=== PATIENT | female | born 1970 | race Asian ===

== ENCOUNTER 2024-09-13 08:20 | Day surgery (SDC) | payer BC ==
[2024-09-08 14:49] VITALS: BMI 22.6
[2024-09-13 08:41] VITALS: RESP 16; TEMP 97.5
[2024-09-13 11:03] VITALS: BP 114/61; PULSE 68
== END 2024-09-13 10:20 | disposition home or self-care (01) ==
LOC: FASU-ENDO 08:20
PROVIDERS: ATTEND Internal Medicine Gastroenterology
PROC: 0DJD8ZZ Inspection of Lower Intestinal Tract, Via Natural or Artificial Opening Endoscopic (ICD-10-PCS; principal; 2024-09-13 09:16)
DX: Z12.11 Encounter for screening for malignant neoplasm of colon (principal)
CPT/HCPCS: 81025